=== PATIENT | female | born 1995 | race Caucasian/White ===

== ENCOUNTER 2021-08-01 19:50 | Emergency (ER) | payer OTHER ==
[2021-08-01 21:01] VITALS: RESP 18; TEMP 98.2
--- NOTE | 2021-08-01 21:57 | XR ---
EXAMINATION TYPE: XR ankle complete LT DATE OF EXAM: 08/01/2021 9:14 PM INDICATION: Patient age:Female; 26 years old; Reason for study: fall pain; COMPARISON: None TECHNIQUE: The left ankle is imaged in 3 projections. FINDINGS: There is no evidence of acute osseous pathology. The joint spaces are well-preserved without evidenc e of subluxation or dislocation. Kager's fat pad is intact. Mild soft tissue swelling around the ankl e most pronounced on the lateral ankle. No radiopaque foreign bodies are identified. IMPRESSION: 1. No evidence of acute fracture. 2. Subcutaneous swelling around the ankle likely secondary to underlying soft tissue injury around th e lateral ankle.
[2021-08-01] MEDS ORDERED: ACETAMINOPHEN TAB 500 MG TAB PO STA (23:59)
--- NOTE | 2021-08-02 00:14 | ED ---
Fall HPI - General Chief Complaint: Fall Stated Complaint: Fall, Left ankle Injury Time Seen by Provider: 08/01/21 23:51 Source: patient Mode of arrival: wheelchair - History of Present Illness Initial Comments: This is a pleasant 26-year-old female who fell at work twisting her left ankle and falling onto her buttock. She is complaining of pain only at the ankle. D enies any numbness or tingling. No this approximately injuries. Most of the pain as lateral aspect of the ankle. Patient states it does hurt when she attempts to ambulate. Denies any other injuries. No head or neck injury. Patient ALLERGIC to NSAIDs. No headache, no fever or chills, no changes in vision or hearing, no sore throat or difficulty with speech, no neck pain, no chest pain or shortness of breath, no abdominal pain, no nausea or vomiting, no changes in urination or bowel movements, no numbness or tingling, no skin rashes or lesions. - Related Data Allergies Allergy/AdvReac Type Severity Reaction Status Date / Time aripiprazole [From Abilify] AdvReac Unknown Verified 08/01/21 21:03 Benzodiazepines AdvReac Unknown Verified 08/01/21 21:03 escitalopram [From Lexapro] AdvReac Unknown Verified 08/01/21 21:03 ketorolac [From Toradol] AdvReac Rash/Hives Verified 08/01/21 21:03 prochlorperazine AdvReac Confusion Verified 08/01/21 21:03 [From Compazine] ziprasidone [From Geodon] AdvReac Rapid Verified 08/01/21 21:03 Heart Rate Review of Systems ROS Statement: Those systems with pertinent positive or pertinent negative responses have been documented in the HPI. ROS Other: All systems not noted in ROS Statement are negative. Past Medical History Additional Past Medical History / Comment(s): arthritis in back History of Any Multi-Drug Resistant Organisms: None Reported Past Surgical History: No Surgical Hx Reported Past Psychological History: ADD/ADHD, Anxiety, Depression Smoking Status: Never smoker Past Alcohol Use History: Occasional Past Drug Use History: None Reported General Exam - General Exam Comments Initial Comments: Obese female no acute distress. Does not appear to be ill or toxic. General appearance: alert, in no apparent distress Head exam: Present: atraumatic, normocephalic, normal inspection Eye exam: Present: normal appearance, PERRL, EOMI. Absent: scleral icterus, conjunctival injection, periorbital swelling ENT exam: Present: normal exam, mucous membranes moist Neck exam: Present: normal inspection, full ROM. Absent: tenderness, meningismus, lymphadenopathy Respiratory exam: Present: normal lung sounds bilaterally. Absent: respiratory distress, wheezes, rales, rhonchi, stridor Cardiovascular Exam: Present: regular rate, normal rhythm, normal heart sounds. Absent: systolic murmur, diastolic murmur, rubs, gallop, clicks GI/Abdominal exam: Present: soft, normal bowel sounds. Absent: distended, tenderness, guarding, rebound, rigid Extremities exam: Present: normal inspection, full ROM, tenderness (Patient tender over the lateral aspect of the ankle, most notably over the Ligament. Pedal pulses intact. Normal capillary refill. No break in skin), normal capillary refill, other (Ligaments are stable as tested.). Absent: pedal edema, joint swelling, calf tenderness Back exam: Present: normal inspection Neurological exam: Present: alert, oriented X3, CN II-XII intact Psychiatric exam: Present: normal affect, normal mood Skin exam: Present: warm, dry, intact, normal color. Absent: rash Course Vital Signs 08/01/21 20:56 Temperature 98.2 F Pulse Rate 117 H Respiratory 18 Rate Blood Pressure 123/83 O2 Sat by Pulse 98 Oximetry Medical Decision Making - Medical Decision Making Patient was told to return to the ER for any signs or symptoms worsen. Told to return immediately if any other problems arise. All questions answered. Treatment plan discussed. Patient in agreement Every effort has been made to ensure accuracy of this dictation. However, due to the limitations of electronic medical records and dictation devices, errors in charting still occur. Patient will need to follow-up with orthopedics. We'll take the patient off of work and have her continue acetaminophen, rice therapy. - Radiology Data Radiology results: report reviewed, image reviewed Disposition Clinical Impression: Sprain of anterior talofibular ligament of left ankle Disposition: HOME SELF-CARE Condition: Stable Instructions (If sedation given, give patient instructions): Ankle Stirrup Splint (ED), Ankle Sprain (ED) Additional Instructions: Sitting work only [facility] [id number] Tylenol as needed for pain control. You can also use [id number] ibuprofen if you have tolerated this previously. Elevation, ice 20 minutes on and off, air splint as directed. Return to the ER immediately if any symptoms worsen, new symptoms arise, or any other problems develop. Is patient prescribed a controlled substance at d/c from ED?: No Referrals: Melquiades Feldman MD [Primary Care Provider] - 08/05/21 Elder Santamaria DO [STAFF PHYSICIAN] - 08/04/21 ([facility]) Time of Disposition: 00:15
[2021-08-02 01:14] VITALS: BP 151/77; PULSE 88
== END 2021-08-02 01:19 | disposition home or self-care (01) ==
LOC: EC 19:50
DX: S93.492A Sprain of other ligament of left ankle, initial encounter (principal); F90.9 Attention-deficit hyperactivity disorder, unspecified type; F41.9 Anxiety disorder, unspecified; F32.A Depression, unspecified; Z88.1 Allergy status to other antibiotic agents; X50.0XXA Overexertion from strenuous movement or load, initial encounter
CPT/HCPCS: 99283; 73610; L4350